=== PATIENT | female | born 1985 | race Caucasian/White ===

== ENCOUNTER 2016-11-14 10:06 | Emergency (ER) | payer BC ==
[2016-11-14 12:13] VITALS: BP 122/47
--- NOTE | 2016-11-14 12:34 | UC ---
Throat Pain/Nasal Anibal HPI - HPI Summary HPI Summary: ST started 3 days ago, then lots of nasal congestion and now coughing. Had episode of difficulty breathing last night while walking dog in the cold air. Denies hx of asthma or COPD. No fever or pain. - History of Current Complaint Chief Complaint: UCRespiratory Stated Complaint: cough/st/chest congestion Time Seen by Provider: 11/14/16 12:07 Hx Obtained From: Patient Hx Last Menstrual Period: 2 days ?: No Onset/Duration: Gradual Onset, Lasting Days Severity: Moderate Cough: Productive Associated Signs & Symptoms: Positive: Nasal Discharge. Negative: Fever, Vomiting, Rash - Allergies/Home Medications Allergies/Adverse Reactions: Allergies Allergy/AdvReac Type Severity Reaction Status Date / Time Latex Allergy Rash Verified 11/14/16 12:13 seasonal Allergy Eyes Uncoded 11/14/16 12:13 Itchy/Swollen/Red/Watery Home Medications: Home Medications [id number] [Nyquil Severe Cold/Flu 5-6.25-10-325 mg/15Ml] 2 tab PO BEDTIME PRN 11/14/16 [History Confirmed 11/14/16] Zicam Tab 1 tab PO DAILY PRN 11/14/16 [History Confirmed 11/14/16] PMH/Surg Hx/FS Hx/Imm Hx Previously Healthy: Yes - Surgical History Surgical History: Yes Surgery Procedure, Year, and Place: wisdom teeth - Family History Known Family History: Positive: Hypertension - Social History Occupation: Employed Full-time Alcohol Use: None Substance Use Type: None Smoking Status (MU): Never Smoked Tobacco - Immunization History Most Recent Influenza Vaccination: NOT IN 2013 Review of Systems Constitutional: Negative Skin: Negative Eyes: Negative ENT: Sore Throat, Nasal Discharge Respiratory: Cough Cardiovascular: Negative Gastrointestinal: Negative Genitourinary: Negative Motor: Negative Neurovascular: Negative Musculoskeletal: Negative Neurological: Negative Psychological: Negative All Other Systems Reviewed And Are Negative: Yes Physical Exam Triage Information Reviewed: Yes Appearance: Well-Appearing, No Pain Distress, Well-Nourished Vital Signs: Initial Vital Signs Temp 99.3 F 11/14/16 12:03 Pulse 101 11/14/16 12:03 Resp 24 11/14/16 12:03 BP 122/47 11/14/16 12:03 Pulse Ox 100 11/14/16 12:03 Vital Signs Reviewed: Yes Eye Exam: Normal Eyes: Positive: Conjunctiva Clear ENT: Positive: Hearing grossly normal, Pharynx normal, Nasal congestion, Nasal drainage, TMs normal Dental Exam: Normal Neck exam: Normal Neck: Positive: Supple, Nontender, No Lymphadenopathy Respiratory Exam: Other - no cough noted Respiratory: Positive: Chest non-tender, Lungs clear, Normal breath sounds, No respiratory distress, No accessory muscle use Cardiovascular: Positive: No Murmur Musculoskeletal Exam: Normal Neurological Exam: Normal Psychological Exam: Normal Skin Exam: Normal Throat Pain/Nasal Course/Dx - Course Course Of Treatment: Lis of local PCPs provided for follow-up within next month. - Differential Dx/Diagnosis Provider Diagnoses: URI, likely viral Discharge - Discharge Plan Condition: Stable Disposition: HOME Patient Education Materials: Upper Respiratory Infection (ED) Forms: *Work Release Referrals: No Primary Care Phys,NOPCP [Primary Care Provider] - Additional Instructions: Keep using the albuterol inhaler as needed for trouble breathing. You can use it every 4 hours. Please arrange for a primary care provider within the next month using the list provided.
== END 2016-11-14 13:06 | disposition home or self-care (01) ==
LOC: UCCORT 10:06
DX: J06.9 Acute upper respiratory infection, unspecified (principal)
CPT/HCPCS: 99211; G0463

== ENCOUNTER 2017-07-18 07:34 | Emergency (ER) | payer BC ==
[2017-07-18 07:44] VITALS: BP 127/62
--- NOTE | 2017-07-18 08:17 | RAD ---
HISTORY: Right shoulder injury COMPARISONS: None VIEWS: 4, Frontal internal rotation, external rotation, outlet, and axillary views of the right shoulder FINDINGS: BONE DENSITY: Normal. BONES: There is no displaced fracture. JOINTS: There is no arthropathy. ALIGNMENT: There is no dislocation. SOFT TISSUES: Unremarkable. OTHER FINDINGS: None. IMPRESSION: NO ACUTE OSSEOUS INJURY. IF SYMPTOMS PERSIST, RECOMMEND REPEAT IMAGING.
--- NOTE | 2017-07-18 08:33 | UC ---
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 - History of Current Complaint Chief Complaint: UCUpperExtremity Stated Complaint: S/P FALL RIGHT ARM/SHOULDER INJURY Time Seen by Provider: 07/18/17 07:53 Hx Obtained From: Patient Hx Last Menstrual Period: 07/15/17 Onset/Duration: Sudden Onset Timing: Constant Severity Initially: Moderate Location Of Pain: Is Diffuse Pain Intensity: 4 - worse with movement Pain Scale Used: 0-10 Numeric Character: Aching, Throbbing, Spasmodic Aggravating Factor(s): Movement, Lifting, External Rotation, Abduction Alleviating Factor(s): Rest Associated Signs And Symptoms: Positive: Negative Related History: Dominant Hand Right - Allergies/Home Medications Allergies/Adverse Reactions: Allergies Allergy/AdvReac Type Severity Reaction Status Date / Time Latex Allergy Rash Verified 07/18/17 07:44 seasonal Allergy Eyes Uncoded 07/18/17 07:44 Itchy/Swollen/Red/Watery Home Medications: Home Medications Multiple Vitamin [Multi Vitamin] 1 tab PO DAILY 07/18/17 [History Confirmed ] PMH/Surg Hx/FS Hx/Imm Hx Previously Healthy: Yes - Surgical History Surgical History: Yes Surgery Procedure, Year, and Place: wisdom teeth - Family History Known Family History: Positive: Hypertension - Social History Alcohol Use: None Substance Use Type: None Smoking Status (MU): Never Smoked Tobacco - Immunization History Most Recent Influenza Vaccination: no Review of Systems Constitutional: Negative Skin: Negative Eyes: Negative ENT: Negative Respiratory: Negative Cardiovascular: Negative Gastrointestinal: Negative Genitourinary: Negative Motor: Negative Neurovascular: Negative Musculoskeletal: Arthralgia Neurological: Negative Psychological: Negative Is Patient Immunocompromised?: No All Other Systems Reviewed And Are Negative: Yes Physical Exam Triage Information Reviewed: Yes Appearance: Well-Appearing, No Pain Distress, Well-Nourished Vital Signs: Initial Vital Signs Temp 98.3 F 07/18/17 07:38 Pulse 79 07/18/17 07:38 Resp 14 07/18/17 07:38 BP 127/62 07/18/17 07:38 Pulse Ox 100 07/18/17 07:38 Vital Signs Reviewed: Yes Eyes: Positive: Conjunctiva Clear ENT: Positive: Hearing grossly normal. Negative: Nasal congestion, Nasal drainage, Trismus, Muffled voice, Hoarse voice Neck exam: Normal Neck: Positive: Supple, Nontender, No Lymphadenopathy Respiratory: Positive: Lungs clear, Normal breath sounds, No respiratory distress Cardiovascular: Positive: RRR, No Murmur Musculoskeletal: Positive: ROM Intact - right elbow and wrist, No Edema, ROM Limited @ - right shoulder anable to abduct >45 degrees/limited ext rotation Neurological: Positive: Alert Psychological Exam: Normal Skin Exam: Normal Diagnostics - Radiology No standard instances Xray Interpretation: No Acute Changes - NO ACUTE OSSEOUS INJURY. IF SYMPTOMS PERSIST, RECOMMEND REPEAT IMAGING Radiology Interpretation Completed By: Radiologist Shoulder Course/Dx - Course Course Of Treatment: advised to see orthopedist. ?rotator cuff injury - Differential Dx/Diagnosis Provider Diagnoses: right shoulder injury. strain and contusion versus other Discharge - Discharge Plan Condition: Stable Disposition: HOME Patient Education Materials: Shoulder Pain (ED) Forms: *Work Release Referrals: No Primary Care Phys,NOPCP [Primary Care Provider] - Isaías Giron MD [Medical Doctor] - As Soon As Possible Additional Instructions: sling for comfort Range of motion periodically see orthopedist first available appt ice advil or aleve for pain Images Head: 1 - tender Front/Back of Body, Lg ([place]): 1 - tender
== END 2017-07-18 08:50 | disposition home or self-care (01) ==
LOC: UCCORT 07:34
DX: S49.81XA Other specified injuries of right shoulder and upper arm, initial encounter (principal); W01.0XXA Fall on same level from slipping, tripping and stumbling without subsequent striking against object, initial encounter; Y92.019 Unspecified place in single-family (private) house as the place of occurrence of the external cause; Z91.040 Latex allergy status; J30.9 Allergic rhinitis, unspecified
CPT/HCPCS: 99212; G0463

== ENCOUNTER 2017-10-04 10:01 | Emergency (ER) | payer BC ==
[2017-10-04 13:22] VITALS: BP 121/65
--- NOTE | 2017-10-04 13:30 | UC ---
UC General HPI - HPI Summary HPI Summary: sudden onset of diarrhea Monday, has had body aches some nausea and continued but lessening diarrhea, no blood or mucous - History of Current Complaint Chief Complaint: UCGeneralIllness Stated Complaint: MUSCLE SORENESS/KEAGAN Time Seen by Provider: 10/04/17 13:13 Hx Obtained From: Patient Hx Last Menstrual Period: 10/04/17 Onset/Duration: Sudden Onset, Lasting Days - 2, Still Present Timing: Constant Onset Severity: Moderate Current Severity: Mild Pain Intensity: 3 Associated Signs & Symptoms: Positive: Diarrhea, Nausea - Allergy/Home Medications Allergies/Adverse Reactions: Allergies Allergy/AdvReac Type Severity Reaction Status Date / Time latex Allergy Rash Verified 10/04/17 13:18 Home Medications: Home Medications Ibuprofen TAB* [Advil TAB*] 400 - 800 mg PO Q6H PRN 10/04/17 [History Confirmed 10/04/17] Vitamin THERAPEUTIC TAB* [Theragran TAB*] 1 tab PO DAILY 10/04/17 [History Confirmed 10/04/17] PMH/Surg Hx/FS Hx/Imm Hx Previously Healthy: Yes - Surgical History Surgical History: Yes Surgery Procedure, Year, and Place: wisdom teeth - Family History Known Family History: Positive: Hypertension - Social History Occupation: Employed Full-time Lives: With Family Alcohol Use: None Substance Use Type: None Smoking Status (MU): Never Smoked Tobacco - Immunization History Most Recent Influenza Vaccination: no Review of Systems Constitutional: Negative Skin: Negative Eyes: Negative ENT: Negative Respiratory: Negative Cardiovascular: Negative Gastrointestinal: Diarrhea, Nausea Genitourinary: Negative Motor: Negative Neurovascular: Negative Musculoskeletal: Myalgia Neurological: Negative Psychological: Negative Is Patient Immunocompromised?: No All Other Systems Reviewed And Are Negative: Yes Physical Exam Triage Information Reviewed: Yes Appearance: Well-Appearing, No Pain Distress, Well-Nourished Vital Signs: Initial Vital Signs Temp 98.1 F 10/04/17 13:14 Pulse 60 10/04/17 13:14 Resp 16 10/04/17 13:14 BP 121/65 10/04/17 13:14 Pulse Ox 100 10/04/17 13:14 Vital Signs Reviewed: Yes Eye Exam: Normal Eyes: Positive: Conjunctiva Clear ENT Exam: Normal ENT: Positive: Normal ENT inspection, Hearing grossly normal, Pharynx normal, TMs normal, Uvula midline. Negative: TM bulging, TM dull, TM red, Tonsillar swelling, Tonsillar exudate, Trismus, Muffled voice, Hoarse voice, Dental tenderness, Sinus tenderness Dental Exam: Normal Neck exam: Normal Neck: Positive: Supple, Nontender, No Lymphadenopathy Respiratory Exam: Normal Respiratory: Positive: Chest non-tender, Lungs clear, Normal breath sounds, No respiratory distress, No accessory muscle use Cardiovascular Exam: Normal Cardiovascular: Positive: RRR, No Murmur, Pulses Normal, Brisk Capillary Refill Abdominal Exam: Normal Abdomen Description: Positive: Nontender, No Organomegaly, Soft. Negative: CVA Tenderness (R), CVA Tenderness (L), Distended, Guarding Bowel Sounds: Positive: Present Musculoskeletal Exam: Normal Musculoskeletal: Positive: Strength Intact, ROM Intact, No Edema Neurological Exam: Normal Neurological: Positive: Alert, Muscle Tone Normal Psychological Exam: Normal Skin Exam: Normal Course/Dx - Course Course Of Treatment: rest increase fluids, diet modifications to treat diarrhea follow with pcp - Differential Dx - Multi-Symptom Provider Diagnoses: acute diarrhea, viral illness Discharge - Discharge Plan Condition: Stable Disposition: HOME Patient Education Materials: Acute Diarrhea (ED), Viral Syndrome (ED), Nutrition Tips for Relief of Diarrhea (ED) Forms: *Work Release Referrals: [facility] [Outside] - If Needed
== END 2017-10-04 13:42 | disposition home or self-care (01) ==
LOC: UCCORT 10:01
DX: A08.4 Viral intestinal infection, unspecified (principal)
CPT/HCPCS: 99211; G0463

== ENCOUNTER 2018-11-13 17:06 | Emergency (ER) | payer BC, OTHER ==
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
[2018-11-13 17:27] VITALS: BP 110/80
== END 2018-11-13 18:00 | disposition home or self-care (01) ==
LOC: UCEAST 17:06
DX: S60.222A Contusion of left hand, initial encounter (principal); Z91.040 Latex allergy status; Y04.0XXA Assault by unarmed brawl or fight, initial encounter; Y93.89 Activity, other specified; Y92.9 Unspecified place or not applicable; Y99.0 Civilian activity done for income or pay
CPT/HCPCS: 99211; G0463